=== PATIENT | male | born 2000 | race African-American/Black ===

== ENCOUNTER 2023-10-25 22:18 | Emergency (ER) | payer BC ==
[~2023-10-25] VITALS: Ht 175.3 cm; Wt 122.0 kg
[2023-10-25 23:17] LABS: INFLUENZA B NAA NEGATIVE (NEGATIVE); RESPIRATORY SYNCYTIAL VIR NAA NEGATIVE (NEGATIVE)
[2023-10-25] MEDS ORDERED: PREDNISONE20 MG PO (23:27)
[2023-10-25 23:45] VITALS: BP 140/84
== END 2023-10-25 23:46 | disposition home or self-care (01) ==
LOC: ED 22:18
PROVIDERS: Family Medicine
DX: J40 Bronchitis, not specified as acute or chronic (principal); Z11.52 Encounter for screening for COVID-19
CPT/HCPCS: 71045; 87502; A9270; U0002